=== PATIENT | female | born 1995 | race Caucasian/White ===

== ENCOUNTER 2021-12-25 15:17 | Emergency (ER) | payer OTHER ==
[~2021-12-25] VITALS: Ht 172.7 cm; Wt 93.9 kg
[~2021-12-25 15:17] MED LIST: NEXPLANON68 MG SUB-Q; NORCO 5-325 TA1 EACH PO
== END 2021-12-25 17:16 | disposition home or self-care (01) ==
LOC: ED 15:17
DX: S80.11XA Contusion of right lower leg, initial encounter (principal); M25.551 Pain in right hip; V49.9XXA Car occupant (driver) (passenger) injured in unspecified traffic accident, initial encounter; Z79.899 Other long term (current) drug therapy
CPT/HCPCS: 99283

== ENCOUNTER 2022-03-13 14:13 | Emergency (ER) | payer OTHER ==
[~2022-03-13] VITALS: Ht 172.7 cm; Wt 93.9 kg
[2022-03-13] MEDS ORDERED: VENTOLIN HFA18 GM INH (18:14)
== END 2022-03-13 18:28 | disposition home or self-care (01) ==
LOC: ED 14:13
DX: R05.9 Cough, unspecified (principal); J02.8 Acute pharyngitis due to other specified organisms; R51.9 Headache, unspecified; R09.81 Nasal congestion; B97.4 Respiratory syncytial virus as the cause of diseases classified elsewhere
CPT/HCPCS: 87502; 99283; U0003